=== PATIENT | male | born 1990 ===

== ENCOUNTER 2022-04-22 08:37 | Emergency (ER) ==
[~2022-04-22] VITALS: Ht 180 cm; Wt 75.0 kg
== END 2022-04-22 09:40 | disposition home or self-care (01) ==
LOC: COL.ER 08:37
DX: S61.512A Laceration without foreign body of left wrist, initial encounter (principal); W18.30XA Fall on same level, unspecified, initial encounter; Y92.59 Other trade areas as the place of occurrence of the external cause; Y99.0 Civilian activity done for income or pay